=== PATIENT | male | born 1975 | race Caucasian/White ===

== ENCOUNTER 2016-07-19 05:53 | Emergency (ER) | payer OTHER ==
[~2016-07-19] VITALS: Ht 182.9 cm; Wt 118.0 kg
[~2016-07-19 05:53] MED LIST: CYCL-36 PO; DICL50 PO; HYDR-3533 PO; IBUP800T23 PO; LORT5TAB PO; ROBA750T3 PO
[2016-07-19 05:54] VITALS: BP 186/100; PULSE 91; RESP 16; TEMP 98; O2SAT 97
[2016-07-19] MEDS ORDERED: ORPHENADRINE INJ 60 MG/2 ML AMP IM ONE (06:30)
[2016-07-19] MEDS ORDERED: IBUP800T23 PO (06:31)
[2016-07-19] MEDS ORDERED: ROBA500T PO (06:31)
--- NOTE | 2016-07-19 06:31 | PD ---
HPI Chief Complaint: Back/ Neck Pain or Injury Time Seen by Provider: 06:26 Travel History International Travel<30 days: No Contact w/Intl Traveler<30days: No Traveled to known affect area: No History of Present Illness HPI 41-year-old male presents to emergency department for evaluation of back spasms. Patient states he's had issues with his back in the past. He was at work today and had just finished his 12 hour shift when he stood up and began to ambulate. He states he then felt a spasm in the mid back. He he states it is still very sore. He did take 800 mg ibuprofen. Denies any associated chest pain or tightness. No difficulty breathing. Does not recall any injury. Denies any recent illnesses, fever, chills. Has no other symptoms to report. PFSH Past Medical History Medical History: Denies Significant Hx Diminished Hearing: No Past Surgical History Surgical History: No Previous Surgery Social History Alcohol Use: No Tobacco Use: Yes (1PPD) Substance Use: No Allergies-Medications (Allergen,Severity, Reaction): Coded Allergies: No Known Allergies (Verified , 07/19/16) Reported Meds & Prescriptions Reported Meds & Active Scripts Active No Active Prescriptions or Reported Medications Review of Systems Except as stated in HPI: all other systems reviewed are Neg Physical Exam Narrative GENERAL: Well-nourished, well-developed male patient, ambulatory with a nonantalgic gait no acute distress SKIN: Warm and dry. HEAD: Normocephalic. Atraumatic EYES: No scleral icterus. No injection or drainage. NECK: Supple, trachea midline. No JVD or lymphadenopathy. CARDIOVASCULAR: Regular rate and rhythm without murmurs, gallops, or rubs. RESPIRATORY: Breath sounds equal bilaterally. No accessory muscle use. GASTROINTESTINAL: Abdomen soft, non-tender, nondistended. MUSCULOSKELETAL: No cyanosis, or edema. 5+ strength equal bilateral lower extremity. BACK: Midline tenderness and without obvious deformity. Tenderness elicited palpation in the thoracic spinous musculature. No CVA tenderness. Data Data Last Documented VS Vital Signs Date Time Temp Pulse Resp B/P Pulse Ox O2 Delivery O2 Flow Rate FiO2 07/19/16 05:54 98.0 91 16 186/100 97 Room Air Orders Orphenadrine Inj (Norflex Inj) (07/19/16 06:30) [facility] Medical Decision Making Medical Screen Exam Complete: Yes Emergency Medical Condition: Yes Medical Record Reviewed: Yes Differential Diagnosis Muscle strain versus spasm versus discogenic pain versus radiculopathy Narrative Course 41-year-old male presents to emergency department for evaluation of back pain patient has tenderness to palpation in the thoracic spine paraspinous musculature. There is no spinal tenderness. Patient states that after the ibuprofen that he took earlier the pain is already laying off. I'll give him additional muscle relaxant. He'll be discharged home to follow-up with primary care provider. He agrees to return immediately with any acute worsening symptoms. Diagnosis Primary Impression: Back muscle spasm Referrals: Primary Care Physician Patient Instructions: General Instructions, Muscle Spasm (ED) Additional Instructions: Ice and/or warm moist heat may help to alleviate symptoms Follow-up with primary care provider Avoid heavy lifting, bending, and twisting Return immediately to the emergency department with any acute worsening symptoms Med/Other Pt SpecificInfo: Prescription(s) given Scripts Methocarbamol (Robaxin)500 Mg [id number] Mg PO QID PRN (MUSCLE SPASM) #20 TAB Ref 0 Prov:Annamarie Cardoso 07/19/16 Ibuprofen 800 Mg [id number] Mg PO Q8H PRN (Pain/Inflammation) #30 TAB Ref 0 Prov:Annamarie Cardoso 07/19/16 Disposition: 01 DISCHARGE HOME Condition: Stable Annamarie Cardoso Jul 19, 2016 06:31
== END 2016-07-19 06:52 | disposition home or self-care (01) ==
LOC: NEPB 05:53
DX: M62.830 Muscle spasm of back (principal); F17.210 Nicotine dependence, cigarettes, uncomplicated; Y99.0 Civilian activity done for income or pay
CPT/HCPCS: 96372; 99283; J2360